=== PATIENT | male | born 1935 | race Caucasian/White ===

== ENCOUNTER 2017-03-30 20:30 | Outpatient (CLI) | payer MEDICARE, OTHER | END 2017-03-30 20:31 | disposition home or self-care (01) | LOC: SLEEPLAB 20:30 | PROVIDERS: ATTEND Internal Medicine | DX: G47.33 Obstructive sleep apnea (adult) (pediatric) (principal); E66.9 Obesity, unspecified; K21.9 Gastro-esophageal reflux disease without esophagitis; I10 Essential (primary) hypertension; R53.83 Other fatigue; R35.1 Nocturia | CPT/HCPCS: 95811 ==

== ENCOUNTER 2017-08-10 06:44 | Day surgery (SDC) | payer MEDICARE, OTHER ==
[2017-08-09 11:34] VITALS: BMI 35.3
--- NOTE | 2017-08-10 06:06 | HP ---
DATE OF ADMISSION: 08/10/2017 Lonnie Rodríguez is an 82-year-old male with a history of colon polyp with polypectomy. His last colonoscopy was done last in 2011. He comes for followup colonoscopy because of history of colon polyp. At the present time, the patient has no specific GI sympotms. ALLERGIES: None. SOCIAL HISTORY: The patient does not smoke, but drinks alcohol socially. MEDICAL ILLNESSES: 1. Hypertension. 2. Atrial fibrillation. 3. Prostatic hypertrophy. 4. Status post bilateral knee replacement. 5. Back surgery x2. 6. Colon polyp. PHYSICAL EXAMINATION: GENERAL: Patient is obese, appears comfortable. VITAL SIGNS: Pulse is 70, blood pressure 130/70. HEENT: Conjunctivae clear. CARDIOVASCULAR: First and second heart sounds normal. LUNGS: Clear to auscultation. ABDOMEN: Soft to palpate. No organomegaly. No tenderness. No masses. ADMITTING DIAGNOSIS: An 82-year-old male with history of colon polyp. PLAN: Colonoscopy. [facility]UR[facility]
--- NOTE | 2017-08-11 13:30 | OP ---
DATE OF PROCEDURE: 08/10/2017 OPERATIVE PROCEDURE: Colonoscopy and polypectomy. PREOPERATIVE DIAGNOSIS: An 82-year-old male with a history of colon polyp with previous po lypectomy. This was done in 2010. The patient comes in for followup colonoscopy. POSTOPERATIVE DIAGNOSES: 1. Sigmoid diverticular disease. 2. Sessile cecal polyp. 3. Sessile transverse colon polyp x2. 4. Sessile descending colon polyp. PROCEDURE NOTE: The patient was placed on his left lateral position and was given sedation by the An esthesia Department. A rectal exam was done before the scope was advanced into the rectum. No lesio ns were felt on rectal exam. A Pentax video colonoscope was introduced into the rectum and advanced all the way into the cecum. The patient's prep was somewhat unsatisfied. The patient has intermitte ntly retained fecal material in the colon. Although water was used to irrigate and wash out, some ar eas were not well seen. The appendiceal opening, ileocecal valve, no pathology seen. A sessile ceca l polyp was removed with snare cautery with good hemostasis. The ascending colon, hepatic flexure, n o pathology. There were two sessile polyps over the transverse colon. Both were removed with snare cautery with good hemostasis. The splenic flexure, no pathology seen. Another sessile polyp over th e descending colon was removed with snare cautery with good hemostasis. The sigmoid colon showed mil d diverticulosis. Rectum showed hemorrhoids. DISCHARGE PLANNING: This is an 82-year-old male with previous colonoscopy and polypectomy, came in for a followup colonoscopy. He underwent colonoscopy with polypectomy x4. DISCHARGE RECOMMENDATIONS: 1. The patient was advised to call me if he develops abdominal pain, hematochezia, or fever. 2. In the absence of any of the above symptoms, he will come back to me in 2 weeks.
== END 2017-08-10 11:02 | disposition home or self-care (01) ==
LOC: SDC 06:44
PROVIDERS: ATTEND Internal Medicine Gastroenterology
PROC: 0DBM8ZX Excision of Descending Colon, Via Natural or Artificial Opening Endoscopic, Diagnostic (ICD-10-PCS; principal; 2017-08-10)
PROC: 0DBL8ZX Excision of Transverse Colon, Via Natural or Artificial Opening Endoscopic, Diagnostic (ICD-10-PCS; 2017-08-10)
DX: Z12.11 Encounter for screening for malignant neoplasm of colon (principal); D12.4 Benign neoplasm of descending colon; D12.3 Benign neoplasm of transverse colon; K63.5 Polyp of colon; K57.30 Diverticulosis of large intestine without perforation or abscess without bleeding; K64.9 Unspecified hemorrhoids; I10 Essential (primary) hypertension; I48.91 Unspecified atrial fibrillation; N40.0 Benign prostatic hyperplasia without lower urinary tract symptoms; Z86.010 Personal history of colon polyps; Z98.1 Arthrodesis status; Z96.653 Presence of artificial knee joint, bilateral; Z98.890 Other specified postprocedural states; Z79.01 Long term (current) use of anticoagulants; Z79.899 Other long term (current) drug therapy
CPT/HCPCS: 88305

== ENCOUNTER 2018-03-14 09:51 | Outpatient (CLI) | payer MEDICARE, OTHER ==
--- NOTE | 2018-03-14 11:21 | RAD ---
PA AND LATERAL CHEST: INDICATIONS: Dyspnea. IMPRESSION: Stable cardiomegaly. The lungs are clear. No pleural effusion or pneumothorax is evident. No acute osseous abnormality is noted. POS: [facility]
== END 2018-03-14 09:52 | disposition home or self-care (01) ==
LOC: RAD 09:51
PROVIDERS: ATTEND Internal Medicine
DX: R06.00 Dyspnea, unspecified (principal); I51.7 Cardiomegaly
CPT/HCPCS: 71046

== ENCOUNTER 2018-06-21 10:08 | Day surgery (SDC) | payer MEDICARE, OTHER ==
[2018-06-20 12:43] VITALS: BMI 34.7
[2018-06-21 12:42] LABS: Hemoglobin 14.9 g/dL (14.0-18.0); Mean Corpuscular HGB CONC 32.3 g/dL (32.0-36.0); Mean Corpuscular Hemoglobin 28.8 pg (27.0-31.0); Mean Corpuscular Volume 89.4 fL (78.0-98.0); Mean Platelet Volume 8.3 fL (7.4-10.4); Platelet Count 159 thou/uL (130-400); RBC Distribution Width 12.4 % (11.5-14.5); Red Blood Cell (RBC) Count 5.17 mill/uL (4.70-6.10); White Blood Cell (WBC) Count 11.7 thou/uL (4.8-10.8)
[2018-06-21] MEDS ORDERED: cefTRIAXone\\ROCEPHIN 2 GM in Sodium Chloride 0.9% 100 ML IVPB SCH (12:45)
[2018-06-21 12:51] LABS: INR-International Normal Ratio 1.2; PTT 30.5 SEC (22.9-36.1); Prothrombin Time 15.6 SEC (12.0-14.7)
[2018-06-21 12:54] LABS: Band 2 % (5-11); Lymphocytes 21 % (21-51); MDiff Complete? YES; Monocytes 8 % (0-10); Neutrophil 59 % (42-75); RBC Morphology Normal; Reactive Lymphocytes 9 % (0-10)
[2018-06-21 12:56] LABS: Anion Gap 11 mmol/L (10-20); BUN (Urea Nitrogen) 17 mg/dL (8.4-25.7); Calc. Creatinine Clearance 83 mL/min (70-130); Calcium 9.2 mg/dL (7.8-10.44); Carbon Dioxide 25 mmol/L (23-31); Chloride 108 mmol/L (98-107); Estimated GFR-MDRD 59; Glucose 99 mg/dL (83-110); Potassium 4.2 mmol/L (3.5-5.1); Sodium 140 mmol/L (136-145)
[2018-06-21] MEDS ORDERED: Fentanyl 100 MCG/2 ML VIAL ONE (13:21)
[2018-06-21] MEDS ORDERED: SUGAMMADEX SODIUM 500 MG/5 ML VIAL ONE (13:21)
[2018-06-21] MEDS ORDERED: B & O ONE (14:57)
--- NOTE | 2018-06-21 16:31 | RAD ---
RETROGRADE IVP: Comparison: None. History: Nephrolithiasis. FINDINGS/IMPRESSION: Multiple limited intraoperative fluoroscopic views from a retrograde IV was submitted for interpretat ion. Contrast is seen in both collecting systems without significant hydronephrosis. No obvious calci fications are seen in either collecting system. Post-surgical changes are seen in the spine. POS: [facility]
[2018-06-21] MEDS ORDERED: ePHEDrine/0.9% NaCl/PF SYRINGE 50 mg/10 ml ONE (17:02)
[2018-06-21] MEDS ORDERED: PROPOFOL 200 MG/20 ML VIAL ONE (17:02)
[2018-06-21] MEDS ORDERED: Ondansetron PF 4 MG/2 ML Vial ONE (17:02)
[2018-06-21] MEDS ORDERED: PHENYLEPHRINE-NS 100 MCG/ML 10 ML SYRINGE ONE (17:02)
[2018-06-21] MEDS ORDERED: Lidocaine 1% PF 5 ML VIAL ONE (17:02)
--- NOTE | 2018-06-21 22:50 | OP ---
DATE OF PROCEDURE: 06/21/2018 PREOPERATIVE DIAGNOSIS: Bladder tumors. POSTOPERATIVE DIAGNOSIS: Bladder tumors. PROCEDURE PERFORMED: Cystoscopy, transurethral resection bladder tumor, and bilateral retrograde pyelography. ANESTHESIA: General. ESTIMATED BLOOD LOSS: About 50 mL. DRAINS PLACED: A 20-Chadian Rutherford catheter with 20 mL in balloon. SPECIMEN REMOVED: Bladder tumors. FINDINGS: He had a 2 to 3 cm patch of what appears to be papillary tumors and superficial behind the left ureteral orifice not involving it. No other abnormalities were noted except a large prostate, quite friable. He had retrograde studies done bilaterally after the TURBT and both ureters drained adequately. There were no filling defects. No evidence of obstruction. DESCRIPTION OF PROCEDURE: We obtained written and verbal consent from the patient. After receiving IV antibiotics, he was taken to the operating suite. He was placed in the supine position on the treatment table. PlexiPulse were placed in his lower extremities and turned on. He was given a general anesthetic oral intubation. He was sterilely prepped and draped. C-arm was brought in for use. Cystoscopy was performed with a 24-Chadian sheath and a visual obturator and 30-degree lens, passing the urinary bladder and then the bladder was examined with both 30 and 70-degree lens. An [employer] resectoscope with gyrus generator and gyrus bladder loop were then used. These tumors were resected, taking up some of the bladder wall with them and then these were sent off for pathology. We cauterized the sites and the edges. There was no significant bleeding from there. There was some bleeding from the prostate, which was quite large and friable, and we cauterized this. We then went ahead and removed these instruments, went in with a 22-Chadian sheath and a 30-degree lens. We used a 5-Chadian Pollack catheter. Clutch Mechanic KUB was taken and then a left retrograde was done with about 15 mL of contrast and a right retrograde was done with about 15 mL of contrast. Both sides drained well without any filling defects. At this point, the bladder was drained, Rutherford catheter was inserted, the urine was clear to very light pink; 20 mL were placed in the balloon and this was hooked up to a drainage bag. He was awakened, extubated, and taken by a stretcher to the recovery room. Job ID: [id number]
== END 2018-06-21 18:40 | disposition home or self-care (01) ==
LOC: SDC 10:08
PROVIDERS: ATTEND Urology
PROC: 0T5B8ZZ Destruction of Bladder, Via Natural or Artificial Opening Endoscopic (ICD-10-PCS; principal; 2018-06-21)
PROC: BT141ZZ Fluoroscopy of Kidneys, Ureters and Bladder using Low Osmolar Contrast (ICD-10-PCS; 2018-06-21)
DX: C67.9 Malignant neoplasm of bladder, unspecified (principal); Z79.01 Long term (current) use of anticoagulants; Z79.899 Other long term (current) drug therapy
CPT/HCPCS: 52005; 52235; 74420; 80048; 85007; 85027; 85610; 85730; 88307; C1758; J0696; J2001; J2405; J2704; J3010; J7050

== ENCOUNTER 2018-06-28 06:26 | Emergency (ER) | payer MEDICARE, OTHER ==
[2018-06-28 08:24] LABS: Bilirubin Negative (Negative); Blood, Urine Large (Negative); Clarity CLOUDY (Clear); Glucose, Urine (Dipstick) Negative (Negative); Nitrite Negative (Negative); Protein, Urine (Dipstick) 30 mg/dL (Neg-Trace); Specific Gravity, Urine 1.019 (1.002-1.036); Urobilinogen 0.2 mg/dL (0.2-1.0); pH, Urine 5.5 (5.0-9.0)
[2018-06-28 08:27] LABS: Bacteria/HPF None Seen HPF (None Seen); Pathc Cast-AUWi Flag 1.29 (0-2.49); Squamous Epithelial 0-3 HPF (0-3); WBC/HPF 21-50 HPF (0-3)
[2018-06-28 08:29] LABS: Anion Gap 15 mmol/L (10-20); BUN (Urea Nitrogen) 15 mg/dL (8.4-25.7); Calc. Creatinine Clearance 0 mL/min (70-130); Calcium 9.2 mg/dL (7.8-10.44); Carbon Dioxide 21 mmol/L (23-31); Chloride 108 mmol/L (98-107); Estimated GFR-MDRD 72; Glucose 97 mg/dL (83-110); Potassium 3.6 mmol/L (3.5-5.1); Sodium 140 mmol/L (136-145)
[2018-06-28 08:40] LABS: Yeast-AUWi Flag 117.5 (0-25.0)
[2018-06-28 08:59] LABS: Leukocyte Moderate (Negative); Yeast-All Forms 1+ HPF (None Seen)
[2018-06-28 09:00] LABS: Hyaline Casts/LPF 0-3 HYALINE CAST LPF (0-3 Hyaline)
== END 2018-06-28 09:32 | disposition home or self-care (01) ==
LOC: ERS 06:26
DX: R33.9 Retention of urine, unspecified (principal); I10 Essential (primary) hypertension
CPT/HCPCS: 36415; 51702; 80048; 81003; 81015

== ENCOUNTER 2018-07-08 17:31 | Emergency (ER) | payer MEDICARE, OTHER | END 2018-07-08 18:09 | disposition home or self-care (01) | LOC: SCSER 17:31 | DX: H61.21 Impacted cerumen, right ear (principal); I10 Essential (primary) hypertension | CPT/HCPCS: 99282 ==

== ENCOUNTER 2019-12-11 06:49 | Outpatient (CLI) | payer MEDICARE, OTHER ==
[2019-12-11 10:14] LABS: #Eosinphils 0.1 thou/uL (0.0-0.7); #Lymphocytes 2.1 thou/uL (1.20-3.40); #Monocytes 0.6 thou/uL (0.11-0.59); #Neutrophils 4.9 thou/uL (1.40-6.50); %Basophils 0.5 % (0.0-1.0); %Eosinophils 1.2 % (0.0-10.0); %Lymphocytes 27.4 % (21.0-51.0); %Monocytes 7.6 % (0.0-10.0); %Neutrophils 63.4 % (42.0-75.0); Hemoglobin 14.9 g/dL (14.0-18.0); Mean Corpuscular HGB CONC 32.4 g/dL (32.0-36.0); Mean Corpuscular Hemoglobin 29.7 pg (27.0-31.0); Mean Corpuscular Volume 91.5 fL (78.0-98.0); Mean Platelet Volume 8.8 fL (7.4-10.4); Platelet Count 147 thou/uL (130-400); RBC Distribution Width 12.7 % (11.5-14.5); Red Blood Cell (RBC) Count 5.04 mill/uL (4.70-6.10); White Blood Cell (WBC) Count 7.7 thou/uL (4.8-10.8)
[2019-12-11 10:22] LABS: INR-International Normal Ratio 1.5; PTT 32.7 sec (22.9-36.1)
[2019-12-11 10:36] LABS: ALT (SGPT) 15 U/L (8-55); AST (SGOT) 21 U/L (5-34); Albumin 4.1 g/dL (3.4-4.8); Alkaline Phosphatase 54 U/L (40-110); Anion Gap 12 mmol/L (10-20); BUN (Urea Nitrogen) 16 mg/dL (8.4-25.7); Bilirubin, Total 1.2 mg/dL (0.2-1.2); Calc. Creatinine Clearance 0 mL/min (70-130); Carbon Dioxide 25 mmol/L (23-31); Chloride 108 mmol/L (98-107); Estimated GFR-MDRD 57; Globulin 2.7 g/dL (2.4-3.5); Glucose 101 mg/dL (83-110); Protein, Total 6.8 g/dL (5.8-8.1); Sodium 141 mmol/L (136-145)
[2019-12-12 10:56] LABS: SARS-CoV-2 MS2 Positive; SARS-CoV-2 N Gene Negative; SARS-CoV-2 S Gene Negative; SARS-CoV-2 orf1ab Negative
== END 2019-12-11 06:50 | disposition home or self-care (01) ==
LOC: LABBT 06:49
PROVIDERS: ATTEND Internal Medicine Cardiovascular Disease
DX: Z01.812 Encounter for preprocedural laboratory examination (principal); Z11.59 Encounter for screening for other viral diseases; I48.91 Unspecified atrial fibrillation
CPT/HCPCS: 80053; 85025; 85610; 85730; U0003; 87635

== ENCOUNTER 2019-12-14 05:42 | Day surgery (SDC) | payer MEDICARE, OTHER ==
[2019-12-11 08:23] VITALS: BMI 35.9
[2019-12-14] MEDS ORDERED: Fentanyl 100 MCG/2 ML VIAL ONE (07:09)
[2019-12-14] MEDS ORDERED: Midazolam HCl 2 mg/2 ml Vial ONE (07:10)
[2019-12-14] MEDS ORDERED: Nitroglycerin 100MG/250ML BOT 250 ML ONE (07:24)
[2019-12-14] MEDS ORDERED: Acetaminophen/Codeine 30-300mg Tablet ONE (08:30)
[2019-12-14] MEDS ORDERED: Sodium Chloride 0.9% 1,000 ML IV SCH (08:41)
[2019-12-14] MEDS ORDERED: Nitroglycerin 0.4 MG TAB (25 Tab Bottle) SL PRN (08:41)
[2019-12-14] MEDS ORDERED: Acetaminophen/Codeine 30-300mg Tablet PO PRN ×2 (08:41)
[2019-12-14] MEDS ORDERED: traMADol HCl 50 MG TAB PO PRN (08:41)
[2019-12-14] MEDS ORDERED: Iopamidol 370 76% 100 ML VIAL ONE (10:49)
== END 2019-12-14 12:52 | disposition home or self-care (01) ==
LOC: CCL 05:42
PROVIDERS: ATTEND Internal Medicine Cardiovascular Disease
PROC: B2111ZZ Fluoroscopy of Multiple Coronary Arteries using Low Osmolar Contrast (ICD-10-PCS; principal; 2019-12-14)
DX: I25.10 Atherosclerotic heart disease of native coronary artery without angina pectoris (principal); I48.20 Chronic atrial fibrillation, unspecified; I35.0 Nonrheumatic aortic (valve) stenosis; I10 Essential (primary) hypertension; E78.00 Pure hypercholesterolemia, unspecified; M19.90 Unspecified osteoarthritis, unspecified site; E66.9 Obesity, unspecified; Z68.35 Body mass index [BMI] 35.0-35.9, adult; Z79.01 Long term (current) use of anticoagulants; Z79.899 Other long term (current) drug therapy
CPT/HCPCS: 76942; 93454; C1769; J1644; J2250; J3010; Q9967

== ENCOUNTER 2020-01-18 10:10 | Emergency (ER) | payer MEDICARE, OTHER ==
[2020-01-18 14:01] LABS: Hemoglobin 14.4 g/dL (14.0-18.0); Mean Corpuscular HGB CONC 32.8 g/dL (32.0-36.0); Mean Corpuscular Hemoglobin 28.9 pg (27.0-31.0); Mean Corpuscular Volume 87.9 fL (78.0-98.0); RBC Distribution Width 12.7 % (11.5-14.5); Red Blood Cell (RBC) Count 4.98 mill/uL (4.70-6.10)
[2020-01-18 14:02] LABS: #Monocytes 0.3 thou/uL (0.11-0.59); #Neutrophils 3.7 thou/uL (1.40-6.50); %Basophils 0.1 % (0.0-1.0); %Eosinophils 0.1 % (0.0-10.0); %Monocytes 6.4 % (0.0-10.0); %Neutrophils 73.5 % (42.0-75.0)
[2020-01-18 14:19] LABS: ALT (SGPT) 21 U/L (8-55); AST (SGOT) 40 U/L (5-34); Alkaline Phosphatase 52 U/L (40-110); Anion Gap 13 mmol/L (10-20); BUN (Urea Nitrogen) 23 mg/dL (8.4-25.7); Bilirubin, Total 1.2 mg/dL (0.2-1.2); Calc. Creatinine Clearance 0 mL/min (70-130); Calcium 9.1 mg/dL (7.8-10.44); Carbon Dioxide 28 mmol/L (23-31); Chloride 101 mmol/L (98-107); Estimated GFR-MDRD 54; Globulin 2.8 g/dL (2.4-3.5); Glucose 104 mg/dL (83-110); Potassium 3.8 mmol/L (3.5-5.1); Protein, Total 6.8 g/dL (5.8-8.1); Sodium 138 mmol/L (136-145)
[2020-01-18 14:21] LABS: MDiff Complete? YES; Mean Platelet Volume 8.8 fL (7.4-10.4); Ovalocytes SLIGHT = 2-5 cells (100X) (0-1/hpf); Platelet Count 104 thou/uL (130-400); Platelet Morphology Comment Appears Decreased
--- NOTE | 2020-01-18 16:02 | RAD ---
PORTABLE CHEST: 01/18/20 PROVIDED CLINICAL HISTORY: Dyspnea. FINDINGS: Comparison 03/14/18. The cardiac silhouette appears enlarged, which may be partially on the basis of portable technique. V ascular calcifications noted involving the aortic arch. There is no focal consolidation, pleural flui d or pneumothorax apparent. IMPRESSION: No evidence for an acute cardiopulmonary process. POS: [facility]
[2020-01-19 12:23] LABS: SARS-CoV-2 MS2 Positive; SARS-CoV-2 N Gene Positive; SARS-CoV-2 S Gene Positive; SARS-CoV-2 orf1ab Positive
== END 2020-01-18 16:30 | disposition home or self-care (01) ==
LOC: ERS 10:10
DX: U07.1 COVID-19 (principal); I10 Essential (primary) hypertension
CPT/HCPCS: 71045; 80053; 85025; 93005; 99284; U0003; 87635

== ENCOUNTER 2020-08-16 03:15 | Inpatient (IN) | payer MEDICARE, OTHER ==
[2020-08-16 05:03] VITALS: BMI 34.0
[2020-08-16] MEDS ORDERED: Cyclobenzaprine 10 MG TAB PO PRN (06:06)
[2020-08-16] MEDS ORDERED: Ondansetron PF 4 MG/2 ML Vial IVP PRN ×2 (06:07→06:16)
[2020-08-16] MEDS ORDERED: Ibuprofen 600 MG TAB PO PRN (06:07)
[2020-08-16] MEDS ORDERED: traMADol HCl 50 MG TAB PO PRN ×2 (06:07)
[2020-08-16] MEDS ORDERED: Dextrose 50% Abboject 50 ML SYRINGE SLOW IVP PRN (06:16)
[2020-08-16] MEDS ORDERED: Dextrose 5% in Water 1,000 ML IV PRN (06:16)
[2020-08-16] MEDS ORDERED: hydrALAZINE 20 MG/ML VIAL SLOW IVP PRN (06:16)
[2020-08-16] MEDS ORDERED: Morphine 2 MG/ML VIAL SLOW IVP PRN ×2 (06:16→08:05)
[2020-08-16] MEDS: Acetaminophen 500 MG TAB PO SCH ×4 (06:23→23:36)
[2020-08-16 06:49] LABS: Anion Gap 15 mmol/L (10-20); BUN (Urea Nitrogen) 12 mg/dL (8.4-25.7); Calc. Creatinine Clearance 90 mL/min (70-130); Calcium 8.9 mg/dL (7.8-10.44); Carbon Dioxide 26 mmol/L (23-31); Chloride 105 mmol/L (98-107); Glucose 127 mg/dL (83-110); Phosphorus 3.1 mg/dL (2.3-4.7); Potassium 3.6 mmol/L (3.5-5.1); Sodium 142 mmol/L (136-145)
[2020-08-16 07:07] LABS: INR-International Normal Ratio 2.1; PTT 41.7 sec (22.9-36.1); Prothrombin Time 24.4 sec (12.0-14.7)
[2020-08-16] MEDS ORDERED: Phytonadione 5 MG in Sodium Chloride 0.9% 50 ML IVPB SCH (08:15)
[2020-08-16] MEDS ORDERED: CEFAZOLIN 2 GM in Premix Bag 1 BAG IVPB SCH (08:30)
[2020-08-16 09:19] LABS: #Eosinphils 0.1 thou/uL (0.0-0.7); #Lymphocytes 2.2 thou/uL (1.20-3.40); #Monocytes 0.6 thou/uL (0.11-0.59); %Basophils 0.5 % (0.0-1.0); %Eosinophils 1.4 % (0.0-10.0); %Lymphocytes 22.4 % (21.0-51.0); %Monocytes 5.5 % (0.0-10.0); %Neutrophils 70.2 % (42.0-75.0); Hemoglobin 14.4 g/dL (14.0-18.0); Mean Corpuscular HGB CONC 32.3 g/dL (32.0-36.0); Mean Corpuscular Hemoglobin 28.6 pg (27.0-31.0); Mean Corpuscular Volume 88.5 fL (78.0-98.0); Mean Platelet Volume 9.1 fL (7.4-10.4); Platelet Count 119 thou/uL (130-400); RBC Distribution Width 13.6 % (11.5-14.5); Red Blood Cell (RBC) Count 5.05 mill/uL (4.70-6.10); White Blood Cell (WBC) Count 9.9 thou/uL (4.8-10.8)
[2020-08-16 09:20] LABS: MDiff Complete? YES; Platelet Morphology Comment Appears Decreased; Poikilocytosis SLIGHT = 6-15 cells (100X) (0-5/hpf)
[2020-08-16] MEDS ORDERED: Glycopyrrolate 0.2 MG/ML 5 ML SYRINGE ONE (09:29)
[2020-08-16] MEDS ORDERED: PROPOFOL 200 MG/20 ML VIAL ONE (09:29)
[2020-08-16] MEDS ORDERED: Lidocaine 1% PF 5 ML VIAL ONE (09:29)
[2020-08-16] MEDS ORDERED: Rocuronium Bromide 10 MG/ML (10ML VIAL) ONE (09:29)
[2020-08-16] MEDS ORDERED: Dexamethasone 20 MG/5 ML VIAL ONE (09:29)
[2020-08-16] MEDS ORDERED: Ondansetron PF 4 MG/2 ML Vial ONE (09:29)
[2020-08-16] MEDS ORDERED: PHENYLEPHRINE-NS 100 MCG/ML 10 ML SYRINGE ONE (09:29)
[2020-08-16 11:48] LABS: SARS-CoV-2 PCR by NAA Not Detected (NotDetected)
[2020-08-16] MEDS ORDERED: Fentanyl 100 MCG/2 ML VIAL ONE (11:53)
[2020-08-16] MEDS ORDERED: Lidocaine 2% Jelly 5 ML TUBE ONE (11:53)
[2020-08-16] MEDS ORDERED: Phenylephrine 10 MG/ML VIAL ONE (12:08)
[2020-08-16] MEDS ORDERED: Neomycin-Polymyxin 1 ML AMP ONE (12:15)
[2020-08-16] MEDS: Pantoprazole 40 MG GRANULES PACKET PO SCH (12:44)
[2020-08-16] MEDS: Atorvastatin Calcium 40 MG TAB PO SCH (12:44)
[2020-08-16] MEDS: Senokot S 8.6-50 MG TAB PO SCH ×2 (12:44→19:54)
[2020-08-16] MEDS: Polyethylene Glycol 3350 17 GM Packet PO SCH (12:44)
[2020-08-16] MEDS: Tamsulosin HCl 0.4 MG CAP PO SCH (12:44)
[2020-08-16] MEDS: Losartan 25 MG TAB PO SCH (12:44)
[2020-08-16] MEDS ORDERED: Promethazine HCl 25 MG/ML VIAL SLOW IVP PRN (14:25)
[2020-08-16] MEDS ORDERED: Ondansetron HCl/PF 4 MG/2 ML Vial IVP PRN (14:25)
[2020-08-16] MEDS ORDERED: Promethazine HCl 25 MG/ML VIAL IM PRN (14:25)
[2020-08-16 14:42] LABS: PTT 45.1 sec (22.9-36.1); Prothrombin Time 23.1 sec (12.0-14.7)
[2020-08-16] MEDS: CEFAZOLIN 2 GM in Premix Bag 1 BAG IVPB SCH (23:35)
[2020-08-17 06:37] LABS: #Lymphocytes 1.3 thou/uL (1.20-3.40); #Monocytes 0.7 thou/uL (0.11-0.59); #Neutrophils 11.2 thou/uL (1.40-6.50); %Basophils 0.3 % (0.0-1.0); %Eosinophils 0.1 % (0.0-10.0); %Lymphocytes 9.7 % (21.0-51.0); %Monocytes 5.3 % (0.0-10.0); %Neutrophils 84.6 % (42.0-75.0); Hemoglobin 12.7 g/dL (14.0-18.0); Mean Corpuscular HGB CONC 32.8 g/dL (32.0-36.0); Mean Corpuscular Volume 88.5 fL (78.0-98.0); Mean Platelet Volume 9.1 fL (7.4-10.4); Platelet Count 122 thou/uL (130-400); RBC Distribution Width 13.3 % (11.5-14.5); Red Blood Cell (RBC) Count 4.37 mill/uL (4.70-6.10); White Blood Cell (WBC) Count 13.2 thou/uL (4.8-10.8)
[2020-08-17 06:44] LABS: INR-International Normal Ratio 1.4; PTT 35.3 sec (22.9-36.1); Prothrombin Time 17.5 sec (12.0-14.7)
[2020-08-17] MEDS: Acetaminophen 500 MG TAB PO SCH ×4 (06:47→23:57)
[2020-08-17 07:00] LABS: Anion Gap 12 mmol/L (10-20); BUN (Urea Nitrogen) 19 mg/dL (8.4-25.7); Calc. Creatinine Clearance 82 mL/min (70-130); Calcium 8.4 mg/dL (7.8-10.44); Carbon Dioxide 24 mmol/L (23-31); Chloride 106 mmol/L (98-107); Glucose 126 mg/dL (83-110); Magnesium 1.9 mg/dL (1.6-2.6); Phosphorus 2.9 mg/dL (2.3-4.7); Sodium 138 mmol/L (136-145)
[2020-08-17] MEDS ORDERED: PHOS-NAK 1 PKT PACK PO SCH (08:15)
[2020-08-17] MEDS ORDERED: Magnesium 2 GM/50 ML 2 GM in Premix Bag 1 BAG IVPB SCH ×2 (08:15→09:30)
[2020-08-17] MEDS: CEFAZOLIN 2 GM in Premix Bag 1 BAG IVPB SCH (08:36)
[2020-08-17] MEDS: Polyethylene Glycol 3350 17 GM Packet PO SCH (08:38)
[2020-08-17] MEDS: Atorvastatin Calcium 40 MG TAB PO SCH (08:52)
[2020-08-17] MEDS: Tamsulosin HCl 0.4 MG CAP PO SCH (08:52)
[2020-08-17] MEDS: Losartan 25 MG TAB PO SCH (08:52)
[2020-08-17] MEDS: Pantoprazole 40 MG GRANULES PACKET PO SCH (08:52)
[2020-08-17] MEDS: Senokot S 8.6-50 MG TAB PO SCH ×2 (08:53→20:56)
[2020-08-17] MEDS: Furosemide 40 MG TAB PO SCH (08:59)
[2020-08-18 05:40] LABS: INR-International Normal Ratio 1.4; PTT 34.4 sec (22.9-36.1)
[2020-08-18] MEDS: Acetaminophen 500 MG TAB PO SCH ×3 (05:40→18:11)
[2020-08-18 05:41] LABS: #Eosinphils 0.2 thou/uL (0.0-0.7); #Monocytes 0.8 thou/uL (0.11-0.59); #Neutrophils 8.1 thou/uL (1.40-6.50); %Eosinophils 1.8 % (0.0-10.0); %Monocytes 7.5 % (0.0-10.0); %Neutrophils 72.7 % (42.0-75.0); Hemoglobin 10.8 g/dL (14.0-18.0); Mean Corpuscular HGB CONC 32.6 g/dL (32.0-36.0); Mean Corpuscular Volume 88.8 fL (78.0-98.0); Platelet Count 115 thou/uL (130-400); RBC Distribution Width 13.4 % (11.5-14.5); Red Blood Cell (RBC) Count 3.72 mill/uL (4.70-6.10); White Blood Cell (WBC) Count 11.1 thou/uL (4.8-10.8)
[2020-08-18 06:08] LABS: Anion Gap 9 mmol/L (10-20); BUN (Urea Nitrogen) 19 mg/dL (8.4-25.7); Calc. Creatinine Clearance 95 mL/min (70-130); Carbon Dioxide 26 mmol/L (23-31); Chloride 108 mmol/L (98-107); Glucose 106 mg/dL (83-110); Magnesium 2.1 mg/dL (1.6-2.6); Phosphorus 3.8 mg/dL (2.3-4.7); Potassium 3.8 mmol/L (3.5-5.1); Sodium 139 mmol/L (136-145)
[2020-08-18] MEDS ORDERED: PHOS-NAK 1 PKT PACK PO SCH (08:00)
[2020-08-18] MEDS: Polyethylene Glycol 3350 17 GM Packet PO SCH (08:40)
[2020-08-18] MEDS: Pantoprazole 40 MG GRANULES PACKET PO SCH (08:40)
[2020-08-18] MEDS: Senokot S 8.6-50 MG TAB PO SCH (08:40)
[2020-08-18] MEDS: Atorvastatin Calcium 40 MG TAB PO SCH (08:41)
[2020-08-18] MEDS: Furosemide 40 MG TAB PO SCH (08:41)
[2020-08-18] MEDS: Losartan 25 MG TAB PO SCH (08:41)
[2020-08-18] MEDS: Tamsulosin HCl 0.4 MG CAP PO SCH (08:42)
[2020-08-18] MEDS ORDERED: Warfarin Sodium 5 MG TAB PO SCH (17:00)
[2020-08-18 20:06] VITALS: BP 98/53; TEMP 97.8
[2020-08-19] MEDS ORDERED: Warfarin Sodium 2.5 MG TAB PO SCH (17:00)
== END 2020-08-18 20:32 | DRG 522 ==
LOC: SURG B 03:15
PROVIDERS: ADMIT Surgery; ATTEND Surgery
PROC: 0SRR0JA Replacement of Right Hip Joint, Femoral Surface with Synthetic Substitute, Uncemented, Open Approach (ICD-10-PCS; principal; 2020-08-16)
DX: S72.001A Fracture of unspecified part of neck of right femur, initial encounter for closed fracture (principal); Z20.822 Contact with and (suspected) exposure to COVID-19; I48.91 Unspecified atrial fibrillation; I25.10 Atherosclerotic heart disease of native coronary artery without angina pectoris; I10 Essential (primary) hypertension; I35.0 Nonrheumatic aortic (valve) stenosis; G47.33 Obstructive sleep apnea (adult) (pediatric); W19.XXXA Unspecified fall, initial encounter; N40.0 Benign prostatic hyperplasia without lower urinary tract symptoms; Z96.653 Presence of artificial knee joint, bilateral; Z79.01 Long term (current) use of anticoagulants; Z85.89 Personal history of malignant neoplasm of other organs and systems; Z98.890 Other specified postprocedural states; Z79.899 Other long term (current) drug therapy
CPT/HCPCS: 36415; 71045; 72170; 80048; 80053; 82550; 83735; 83880; 84100; 84484; 85025; 85610; 85730; 87635; 93005; 93306; 93880; 96374; C1776; J0690; J1100; J2270; J2370; J2405; J2704; J3010; J3430; J3475; U0003; U0005

== ENCOUNTER 2021-07-27 10:20 | Outpatient (CLI) | payer MEDICARE, OTHER | END 2021-07-27 10:21 | disposition home or self-care (01) | LOC: TBSIIMAG 10:20 | PROVIDERS: ATTEND Surgery | DX: M47.26 Other spondylosis with radiculopathy, lumbar region (principal); Z98.890 Other specified postprocedural states | CPT/HCPCS: 72110; 72148 ==